=== PATIENT | male | born 1950 | race Caucasian/White ===

== ENCOUNTER 2018-08-07 17:01 | Emergency (ER) | payer MEDICARE, MEDICAID ==
[~2018-08-07] VITALS: Ht 182.9 cm; Wt 125.0 kg
[2018-08-07] MEDS ORDERED: normal saline 1000ML IV soln IV ONE (18:35)
[2018-08-07 18:52] LABS: BASOPHILS % (AUTO) 0.3 % (0-1); EOSINOPHILS % (AUTO) 0.6 % (0-6); HEMATOCRIT 36.4 % (42.0-52.0); HEMOGLOBIN 12.5 g/dl (14.0-17.9); LYMPHOCYTES # (AUTO) 0.7 X10'3 (1.1-4.8); LYMPHOCYTES % (AUTO) 11.7 % (21-51); MEAN CORPUSCULAR HEMOGLOBIN 30.5 PG (27.0-31.0); MEAN CORPUSCULAR HGB CONC 34.4 % (33.0-36.5); MEAN CORPUSCULAR VOLUME 88.7 FL (78-98); MEAN PLATELET VOLUME 6.2 FL (7.4-10.4); MONOCYTES # (AUTO) 0.4 X10'3 (0-0.9); MONOCYTES % (AUTO) 7.2 % (2-12); NEUTROPHILS # (AUTO) 4.6 X10'3 (1.8-7.7); NEUTROPHILS % (AUTO) 80.2 % (42-75); PLATELET COUNT 125 X10'3 (140-440); RED BLOOD COUNT 4.11 X10'6 (4.70-6.10); RED CELL DISTRIBUTION WIDTH 16.3 % (11.5-14.5); WHITE BLOOD COUNT 5.7 X10'3 (4.5-11.0)
[2018-08-07] MEDS ORDERED: morphine 4 MG/ML inj SYRINge IV ONE (18:55)
[2018-08-07 19:01] LABS: CLARITY,URINE SLIGHTLY CLOUDY (Clear); COLOR,URINE YELLOW (Yellow); GLUCOSE, URINE >=1000 mg/dl (Neg); KETONES,URINE NEGATIVE (Neg); LEUKOCYTE ESTERASE ,URINE TRACE (Neg); NITRITES, URINE NEGATIVE (Neg); OCCULT BLOOD,URINE LARGE (Neg); PROTEIN,URINE 100 mg/dl (Neg); UROBILINOGEN,URINE 0.2 E.U/dL (0.2-1.0)
[2018-08-07 19:05] LABS: ALANINE AMINOTRANSFERASE 31 U/L (12-78); ALBUMIN 3.5 G/DL (3.4-5.0); ALBUMIN/GLOBULIN RATIO 0.9 (1.1-1.5); ALKALINE PHOSPHATASE 64 IU/L (46-116); ANION GAP 9 (8-16); ASPARTATE AMINO TRANSFERASE 23 U/L (10-37); BILIRUBIN,TOTAL 1.2 MG/DL (0.1-1.0); BLOOD UREA NITROGEN 19 MG/DL (7-18); BUN/CREATININE RATIO 14.4 (5.4-32.0); CALCIUM 9.3 MG/DL (8.5-10.1); CHLORIDE 102 MMOL/L (99-107); CREATININE 1.32 MG/DL (0.60-1.10); GLUCOSE 119 MG/DL (70-104); POTASSIUM 4.3 MMOL/L (3.5-5.1); SODIUM 137 MMOL/L (135-145); TOTAL CARBON DIOXIDE 26.4 MMOL/L (24-32); TOTAL PROTEIN 7.5 G/DL (6.4-8.2); eGFR 54 ML/MIN
[2018-08-07 19:07] LABS: UA COLLECTION TYPE STRAIGHT CATH
[2018-08-07 19:09] LABS: BACTERIA,URINE 1+ /HPF (Neg); RBC,URINE 50-100 /HPF (0-2)
[2018-08-07 19:10] LABS: MUCUS STRANDS NONE SEEN /LPF (Neg); SQUAMOUS EPITHELIAL CELL,UR NONE SEEN /LPF (FEW)
[2018-08-07] MEDS ORDERED: CEPH-571 PO (19:34)
[2018-08-07] MEDS ORDERED: CefTRIAXone 2gm/D5W 50ml 50 ML IV ONE (19:35)
[2018-08-07] MEDS ORDERED: HYDR-569 PO (19:35)
[2018-08-07 19:56] VITALS: BP 132/66
== END 2018-08-07 19:58 | disposition home or self-care (01) ==
LOC: ER 17:02
DX: N39.0 Urinary tract infection, site not specified (principal); Z79.2 Long term (current) use of antibiotics; Z79.899 Other long term (current) drug therapy
CPT/HCPCS: 36415; 80053; 81001; 85025; 87088; 96365; 96375; 99284; J0696; J2270; J7030

== ENCOUNTER 2018-08-13 11:59 | Emergency (ER) | payer MEDICARE, MEDICAID ==
[~2018-08-13] VITALS: Ht 182.9 cm; Wt 125.0 kg
[~2018-08-13 11:59] MED LIST: CEPH-571 PO; HYDR-569 PO
[2018-08-13 12:34] LABS: BASOPHILS % (AUTO) 0.3 % (0-1); EOSINOPHILS # (AUTO) 0.1 X10'3 (0-0.9); EOSINOPHILS % (AUTO) 2.5 % (0-6); HEMATOCRIT 36.9 % (42.0-52.0); HEMOGLOBIN 12.5 g/dl (14.0-17.9); LYMPHOCYTES # (AUTO) 0.5 X10'3 (1.1-4.8); LYMPHOCYTES % (AUTO) 9.7 % (21-51); MEAN CORPUSCULAR HEMOGLOBIN 30.3 PG (27.0-31.0); MEAN CORPUSCULAR HGB CONC 33.8 % (33.0-36.5); MEAN CORPUSCULAR VOLUME 89.6 FL (78-98); MEAN PLATELET VOLUME 6.2 FL (7.4-10.4); MONOCYTES # (AUTO) 0.3 X10'3 (0-0.9); MONOCYTES % (AUTO) 7.1 % (2-12); NEUTROPHILS # (AUTO) 3.9 X10'3 (1.8-7.7); NEUTROPHILS % (AUTO) 80.4 % (42-75); PLATELET COUNT 107 X10'3 (140-440); RED BLOOD COUNT 4.12 X10'6 (4.70-6.10); RED CELL DISTRIBUTION WIDTH 16.2 % (11.5-14.5); WHITE BLOOD COUNT 4.9 X10'3 (4.5-11.0)
[2018-08-13] MEDS ORDERED: ondansetron 4mg rapidly disintigrating tab PO ONE (12:40)
[2018-08-13] MEDS ORDERED: LIDOcaine 2% 10ml TOPICAL JELLY (Urojet) MM ONE (12:40)
[2018-08-13] MEDS ORDERED: oxybutynin 5mg tablet PO ONE ×2 (12:40→16:25)
[2018-08-13] MEDS ORDERED: morphine 4 MG/ML inj SYRINge IM ONE (12:40)
[2018-08-13 12:47] LABS: ALANINE AMINOTRANSFERASE 26 U/L (12-78); ALBUMIN 3.3 G/DL (3.4-5.0); ALBUMIN/GLOBULIN RATIO 0.8 (1.1-1.5); ALKALINE PHOSPHATASE 68 IU/L (46-116); ANION GAP 9 (8-16); ASPARTATE AMINO TRANSFERASE 20 U/L (10-37); BILIRUBIN,TOTAL 0.8 MG/DL (0.1-1.0); BLOOD UREA NITROGEN 13 MG/DL (7-18); BUN/CREATININE RATIO 12.6 (5.4-32.0); CALCIUM 9.1 MG/DL (8.5-10.1); CHLORIDE 105 MMOL/L (99-107); CREATININE 1.03 MG/DL (0.60-1.10); GLUCOSE 139 MG/DL (70-104); POTASSIUM 4.1 MMOL/L (3.5-5.1); SODIUM 141 MMOL/L (135-145); TOTAL CARBON DIOXIDE 26.6 MMOL/L (24-32); TOTAL PROTEIN 7.3 G/DL (6.4-8.2); eGFR 72 ML/MIN
[2018-08-13 12:52] LABS: CLARITY,URINE CLOUDY (Clear); COLOR,URINE BROWN (Yellow); GLUCOSE, URINE >=1000 mg/dl (Neg); KETONES,URINE TRACE mg/dl (Neg); LEUKOCYTE ESTERASE ,URINE NEGATIVE (Neg); NITRITES, URINE NEGATIVE (Neg); OCCULT BLOOD,URINE LARGE (Neg); PH,URINE 5.5 (4.8-8.0); PROTEIN,URINE 100 mg/dl (Neg); UROBILINOGEN,URINE 0.2 E.U/dL (0.2-1.0)
[2018-08-13 12:58] LABS: UA COLLECTION TYPE FOLEY CATH
[2018-08-13 13:01] LABS: BACTERIA,URINE FEW /HPF (Neg); RBC,URINE TNTC /HPF (0-2); SQUAMOUS EPITHELIAL CELL,UR NONE SEEN /LPF (FEW)
[2018-08-13 13:02] LABS: HYALINE CASTS 0-3 /LPF (NEGATIVE); MUCUS STRANDS NONE SEEN /LPF (Neg)
[2018-08-13] MEDS ORDERED: HYDROcodone/acetaminophen 10/325mg tab PO ONE (13:50)
[2018-08-13] MEDS ORDERED: HYDROmorphone 1 mg/ml syringe IM ONE (14:20)
[2018-08-13] MEDS ORDERED: HYDROmorphone 1 mg/ml syringe IV ONE (15:20)
[2018-08-13] MEDS ORDERED: amitryptiline 50mg tablet PO ONE (16:25)
[2018-08-13] MEDS ORDERED: ONDA4TAB9 PO (17:05)
[2018-08-13] MEDS ORDERED: HYDR-565 PO (17:05)
[2018-08-13 17:31] VITALS: BP 131/66
== END 2018-08-13 17:34 | disposition home or self-care (01) ==
LOC: ER 11:59
DX: R31.9 Hematuria, unspecified (principal); E11.65 Type 2 diabetes mellitus with hyperglycemia; R30.0 Dysuria; Z85.46 Personal history of malignant neoplasm of prostate; Z79.2 Long term (current) use of antibiotics; Z79.899 Other long term (current) drug therapy; Z87.19 Personal history of other diseases of the digestive system
CPT/HCPCS: 36415; 80053; 81001; 85025; 87088; 96372; 96374; 99285; J1170; J2270

== ENCOUNTER 2019-03-22 03:43 | Outpatient (CLI) | payer MEDICARE, MEDICAID ==
[~2019-03-22 03:43] MED LIST changes: +HYDR-4383 PO; -HYDR-569 PO
== END 2019-03-22 23:59 | disposition home or self-care (01) ==
LOC: DIABETIC 03:43
PROVIDERS: ATTEND Student in an Organized Health Care Education/Training Program
DX: Z01.818 Encounter for other preprocedural examination (principal); E66.01 Morbid (severe) obesity due to excess calories; E11.9 Type 2 diabetes mellitus without complications; I10 Essential (primary) hypertension; K21.9 Gastro-esophageal reflux disease without esophagitis
CPT/HCPCS: 97802

== ENCOUNTER 2019-03-28 15:27 | Emergency (ER) | payer MEDICARE, MEDICAID ==
[~2019-03-28] VITALS: Ht 182.9 cm; Wt 126.8 kg
[2019-03-28 15:42] VITALS: BP 166/63
[2019-03-28] MEDS ORDERED: CEPH250T PO (16:36)
== END 2019-03-28 17:14 | disposition home or self-care (01) ==
LOC: ER 15:27
DX: S91.114A Laceration without foreign body of right lesser toe(s) without damage to nail, initial encounter (principal); E11.42 Type 2 diabetes mellitus with diabetic polyneuropathy; W22.03XA Walked into furniture, initial encounter; Y93.89 Activity, other specified; Y92.89 Other specified places as the place of occurrence of the external cause; Y99.9 Unspecified external cause status
CPT/HCPCS: 73660; 99283

== ENCOUNTER 2019-04-24 04:27 | Outpatient (CLI) | payer MEDICARE, MEDICAID | END 2019-04-24 23:59 | disposition home or self-care (01) | LOC: DIABETIC 04:27 | PROVIDERS: ATTEND Student in an Organized Health Care Education/Training Program | DX: Z01.818 Encounter for other preprocedural examination (principal); E66.01 Morbid (severe) obesity due to excess calories; E11.9 Type 2 diabetes mellitus without complications; E66.9 Obesity, unspecified; I11.0 Hypertensive heart disease with heart failure; I50.9 Heart failure, unspecified; K21.9 Gastro-esophageal reflux disease without esophagitis | CPT/HCPCS: 97802 ==

== ENCOUNTER 2019-06-05 04:46 | Outpatient (CLI) | payer MEDICARE, MEDICAID | END 2019-06-05 23:59 | disposition home or self-care (01) | LOC: DIABETIC 04:46 | PROVIDERS: ATTEND Student in an Organized Health Care Education/Training Program | DX: E11.9 Type 2 diabetes mellitus without complications (principal); Z71.3 Dietary counseling and surveillance | CPT/HCPCS: 97803 ==

== ENCOUNTER 2019-06-28 02:16 | Outpatient (CLI) | payer MEDICARE, MEDICAID | END 2019-06-28 23:59 | disposition home or self-care (01) | LOC: DIABETIC 02:16 | PROVIDERS: ATTEND Student in an Organized Health Care Education/Training Program | DX: Z01.818 Encounter for other preprocedural examination (principal); E66.9 Obesity, unspecified; I10 Essential (primary) hypertension; E11.9 Type 2 diabetes mellitus without complications | CPT/HCPCS: 97803 ==